=== PATIENT | male | born 1980 | race Caucasian/White ===

== ENCOUNTER 2017-08-17 15:37 | Emergency (ER) | payer BC ==
[2017-08-17 16:07] VITALS: BP 142/69
--- NOTE | 2017-08-17 16:22 | ED ---
Throat Pain/Nasal Congestion - HPI Summary HPI Summary: 36 yr old male with the complaint of runny nose, post nasal drip, sore throat and ear pain. Onset of symptoms about four days ago. He has also ahd a dry cough. He has no other complaints. 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 Infectious Disease History: No Infectious Disease History: Denies: Traveled Outside the [place] in Last 30 Days - Family History Known Family History: Positive: None - Social History Occupation: Employed Full-time Alcohol Use: Rare Substance Use Type: Reports: None Smoking Status (MU): Heavy Every Day Tobacco Smoker Type: Smokeless Tobacco Amount Used/How Often: 1 can every other day Length of Time of Smoking/Using Tobacco: since age 14 Review of Systems Constitutional: Negative Positive: Sore Throat, Ear Ache, Nasal Discharge Positive: Cough All Other Systems Reviewed And Are Negative: Yes Physical Exam Triage Information Reviewed: Yes Vital Signs On Initial Exam: Initial Vitals Temp Pulse Resp BP Pulse Ox 98.8 F 78 14 142/69 99 08/17/17 15:59 08/17/17 15:59 08/17/17 15:59 08/17/17 15:59 08/17/17 15:59 Vital Signs Reviewed: Yes Appearance: Positive: Well-Appearing, No Pain Distress Skin: Positive: Warm, Skin Color Reflects Adequate Perfusion Head/Face: Positive: Normal Head/Face Inspection Eyes: Positive: EOMI ENT: Positive: Pharyngeal erythema, Nasal congestion, TM red - left, right with effusion Neck: Positive: Nontender Respiratory/Lung Sounds: Positive: Clear to Auscultation, Breath Sounds Present Cardiovascular: Positive: RRR. Negative: Murmur Abdomen Description: Positive: Nontender Musculoskeletal: Positive: Strength/ROM Intact Neurological: Positive: Sensory/Motor Intact, Alert, Oriented to Person Place, Time, CN Intact II-III Psychiatric: Positive: Normal - Bob Coma Scale Best Eye Response: 4 - Spontaneous Best Motor Response: 6 - Obeys Commands Best Verbal Response: 5 - Oriented Coma Scale Total: 15 Diagnostics - Vital Signs Vital Signs Temp Pulse Resp BP Pulse Ox 08/17/17 15:59 98.8 F 78 14 142/69 99 - Laboratory Lab Statement: Any lab studies that have been ordered have been reviewed, and results considered in the medical decision making process. EENT Course/Dx - Course Course Of Treatment: 36 yr old with sinusitis, and otitis media. Plan Rx with augmentin. - Diagnoses Provider Diagnoses: Sinusitis, Otitis media Discharge - Sign-Out/Discharge Documenting (check all that apply): Discharge/Admit/Transfer - Discharge Plan Condition: Good Disposition: HOME Prescriptions: Amoxicillin/Clavulanate TAB* [Augmentin TAB 875*] 875 mg PO BID #20 tab Patient Education Materials: Sinusitis (ED), Ear Infection (ED), Hypertension ( ED) Referrals: [facility] [Outside] - 1 Day Non Staff,Doctor [Primary Care Provider] - - Billing Disposition and Condition Condition: GOOD Disposition: Home
== END 2017-08-17 16:29 | disposition home or self-care (01) ==
LOC: UCCORT 15:37
DX: J32.9 Chronic sinusitis, unspecified (principal); F17.220 Nicotine dependence, chewing tobacco, uncomplicated; H66.93 Otitis media, unspecified, bilateral
CPT/HCPCS: 99202; G0463